=== PATIENT | female | born 1940 | race Caucasian/White ===

== ENCOUNTER 2018-12-10 19:19 | Inpatient (IN) ==
[2018-12-10 21:22] LABS: BASO# 0.01 X1000 (0.0-0.2); BASO% 0.1 % (0.0-0.8); EOS# 0.01 X1000 (0.0-0.7); EOS% 0.1 % (0.0-10.0); HEMATOCRIT 45.2 % (37.0-47.0); HEMOGLOBIN 15.3 g/dL (12.0-16.0); IMM GRAN# 0.07 X1000 (0.0-0.04); IMM GRAN% 0.4 % (0.0-0.5); LYMPH# 0.35 X1000 (1.2-3.4); LYMPH% 1.8 % (20.5-51.1); MCH 29.9 PG (27-31); MCHC 33.8 g/dL (33-37); MCV 88.3 FL (81-99); MONO# 0.95 X1000 (0.11-0.59); MONO% 4.8 % (1.7-9.3); MPV 10.8 FL (7.4-10.4); NEUT# 18.32 X1000 (1.4-6.5); NEUT% 92.8 % (42.2-75.2); PLT 266 X1000 (130-400); RBC 5.12 XMIL (4.2-5.4); RDW 12.8 % (11.5-14.5); WBC 19.71 X1000 (4.8-10.8)
[2018-12-10 21:27] LABS: ALB/GLOB RATIO 1.2; ALBUMIN 3.8 g/dL (3.5-5.0); CALCIUM 9.7 mg/dL (8.8-10.2); POTASSIUM 4.5 mmol/L (3.5-5.1); TOTAL BILIRUBIN 0.53 mg/dL (0.20-1.00)
[2018-12-10] MEDS ORDERED: NS 1,000 ML IV ONE (21:46)
[2018-12-10] MEDS ORDERED: ZOFRAN IV ONE (21:46)
--- NOTE | 2018-12-10 22:03 | PROVIDER DOCUMENTATION ---
HPI-Abdominal Pain/GI Problem - General Chief Complaint: N/V/D Stated Complaint: nvd Time Seen by Provider: 12/10/18 20:41 Source: patient, family - History of Present Illness-ABD Nature of Presenting Problems: Abd pain, n/v/d overall worsening since 11/27/2018. She became too weak to stand today which prompted EMS to be called. No headache, chest pain. Abdominal Pain Onset Location: reports: generalized abdomen Pain Radiation: reports: no radiation Quality of Pain: reports: cramping Severity in ED: reports: mild Onset/Duration: reports: other Timing: reports: getting worse Activities at Onset: reports: none Modifying Factors: worse with: nothing Associated Symptoms: reports: diarrhea, fatigue, fever/chills, malaise, nausea, vomiting, trouble walking. denies: chest pain, cough, syncope Bruising or Bleeding Gums?: No Similar Symptoms Previously?: No Recently seen or treated by another doctor?: No Review of Systems - Adult - REVIEW OF SYSTEMS - ADULT Constitutional: reports: see HPI, chills Eyes: reports: no symptoms reported Ears, Nose, Mouth & Throat: reports: no symptoms reported Cardiovascular: reports: no symptoms reported. denies: chest pain Respiratory: reports: no symptoms reported. denies: cough Gastrointestinal: reports: see HPI, abdominal pain, nausea, vomiting. denies: rectal bleeding Genitourinary: reports: no symptoms reported Musculoskeletal: reports: no symptoms reported. denies: back pain Integumentary: reports: no symptoms reported. denies: rash Neurological: reports: no symptoms reported. denies: numbness, paresthesia Psychiatric: reports: no symptoms reported Endocrine: reports: no symptoms reported Hematologic/Lymphatic: reports: no symptoms reported Allergic/Immunologic: reports: no symptoms reported All Other Systems: Reviewed and Negative Past History - Adult - PAST MEDICAL HISTORY-ADULT Review of Records: reports: Old Records Reviewed, Nursing Assessment Review, Medications Reviewed, Social history reviewed & non-contributory. Major Childhood Illnesses: reports: denies history Cardiovascular: reports: denies history Respiratory: reports: denies history Gastrointestinal: reports: denies history Obstetrical/Gynecological: reports: denies history Genitourinary: reports: denies history Musculoskeletal: reports: denies history Neurological: reports: denies history Endocrine/Immune: reports: denies history Other Conditions: reports: denies history - IMMUNIZATION STATUS Childhood Immunizations: See Nurse Assessment Flu Vaccine: See Nurse Assessment - FAMILY HISTORY Family History: reviewed, not pertinent - SOCIAL HISTORY Smoking: denies Substance Use: none/never Alcohol Use Frequency: never Living Situation: family Physical Exam-General - PHYSICAL EXAM-ADULT Initial Vital Signs Reviewed: Yes - CONSTITUTIONAL General Appearance: appears well, alert, no apparent distress - EYES Eyes: pink conjunctivae - HEAD, EARS, NOSE, MOUTH & THROAT HENMT: moist mucous membranes - NECK Neck: supple - RESPIRATORY Respiratory: lungs clear, normal breath sounds - CARDIOVASCULAR Cardiovascular: normal peripheral pulses, regular rate, rhythm - GASTROINTESTINAL (ABDOMEN) Abdominal Exam: non tender, soft - LYMPHATIC Lymphatic: no adenopathy - MUSCULOSKELETAL Back Exam: normal inspection Extremity: normal gait - SKIN Integumentary: normal color, normal turgor, warm/dry - NEUROLOGIC Neurologic: grossly normal - PSYCHIATRIC Psych/Mental Status: normal thought content, oriented x 3 Progress - PLAN OF CARE/RESULTS Progress/Plan/Lab Results: Vital Signs - 8 hr 12/10/18 19:19 Temperature 99.0 F Pulse Rate 88 Respiratory Rate 19 Blood Pressure 155/66 O2 Sat by Pulse Oximetry 100 Laboratory Results - last 24 hr 12/10/18 12/10/18 20:19 20:19 WBC 19.71 H RBC 5.12 Hgb 15.3 Hct 45.2 MCV 88.3 MCH 29.9 MCHC 33.8 RDW Std Deviation 12.8 Plt Count 266 MPV 10.8 H Immature Gran % (Auto) 0.4 Neut % (Auto) 92.8 H Lymph % (Auto) 1.8 L [place] % (Auto) 4.8 Eos % (Auto) 0.1 Baso % (Auto) 0.1 Immature Gran # (Auto) 0.07 H Neut # (Auto) 18.32 H Lymph # (Auto) 0.35 L [place] # (Auto) 0.95 H Eos # (Auto) 0.01 Baso # (Auto) 0.01 Sodium 141 Potassium 4.5 Chloride 105 Carbon Dioxide 23 L Anion Gap 13 BUN 18 Creatinine 1.0 H Estimated GFR/1.73 m2 53 BUN/Creatinine Ratio 18 Glucose 148 H Calculated Osmolality 286 Calcium 9.7 Total Bilirubin 0.53 AST 27 ALT 21 Alkaline Phosphatase 99 Total Protein 7.0 Albumin 3.8 Globulin 3.2 Albumin/Globulin Ratio 1.2 Lipase 12 L Orders Category Date Time Status Saline Loc NOW Care 12/10/18 21:02 Active NPO Diet 12/10/18 21:[address] ABD/PELVIS W/IV CONT ONLY [CT] Stat Exams 12/10/18 21:46 Ordered CBC WITH DIFF [HEME] Stat Lab 12/10/18 20:19 Completed COMPREHENSIVE METABOLIC PANEL [CHEM] Stat Lab 12/10/18 20:19 Completed LIPASE [CHEM] Stat Lab 12/10/18 20:19 Completed 0.9% Sodium Chloride Inj [Ns] 1,000 ml Med 12/10/18 21:46 Active IV 999 mls/hr Ondansetron [Zofran] Med 12/10/18 21:46 Discontinued 4 mg IV NOW ONE Abd Pain/OB <20 weeks Stat Oth 12/10/18 21:[address] Brizuela. Result Diagrams: 12/10/18 20:19 12/10/18 20:19 - CT/MRI 1 CT Study: Abdomen, Pelvis Impression: See EMR Report (colitis, distal esophagus thickened.) - CONSULTS/PCP/HOSPITALIST Notification #1 *Consult/PCP/Hospitalist*: Dr. Chiang Time Discussed: 22:49 Consult Disposition: Admit Departure - Departure Date of Disposition Decision: 12/10/18 Time of Disposition Decision: 22:48 DIAGNOSIS: Colitis Abdominal pain Qualifiers: Abdominal location: unspecified location Qualified Code(s): R10.9 - Unspecified abdominal pain Leukocytosis Qualifiers: Leukocytosis type: unspecified Qualified Code(s): D72.829 - Elevated white blood cell count, unspecified Disposition: ADMITTED INPATIENT 09 Certified Medical Emergency: Emergent Condition: Stable - Critical Care Note This patient required my direct & personal management of CC.: No Attestation - Physician/ JOSE ALFREDO Attestation Patient care was provided by Advanced Practice Provider:: Yes Advanced Practice Provider:: Marvin Rg Advanced Practice Provider documentation review:: The Mid-level provider documentation, treatment plan and medical decision making was reviewed by the physician who agrees with all treatment and medical decision making by the MLP. The physician spent face to face time with patient:: No Advanced Practice Provider documentation review:: Supervising physician onsite and consulted in the evaluation and care of this patient. The physician did not have a face to face encounter with the patient.
[2018-12-10] MEDS ORDERED: LEVAQUIN 500 MG/D5W 500 MG/100 ML IVPB IV ONE (22:34)
[2018-12-10] MEDS ORDERED: FLAGYL 500 MG/NS 500 MG/100 ML IVPB IV ONE (22:34)
[2018-12-11] MEDS ORDERED: CHLORASEPTIC SORE THROAT LOZENGE MT PRN (00:44)
[2018-12-11] MEDS ORDERED: PEPCID PO PRN (00:45)
[2018-12-11] MEDS ORDERED: IMODIUM PO PRN (00:47)
[2018-12-11 01:12] LABS: HEMOGLOBIN A1C 5.4 % (4.8-6.0)
--- NOTE | 2018-12-11 03:02 | HISTORY AND PHYSICAL ---
CHIEF COMPLAINT: Nausea, vomiting and diarrhea. HISTORY OF PRESENT ILLNESS: Very pleasant 78-year-old female lying in the ER stretcher has a past medical history of GERD and H. pylori, who had nausea, vomiting and diarrhea that originally started back on November 27. She had nausea and vomiting that day for roughly 24 hours and then it went away. She stated that she has limited what she has eaten since then but she has felt okay. Yesterday, she started having nausea and vomiting again and then the last 12 or 24 hours she started having several bouts of diarrhea. She denied any hematemesis, melena or hematochezia. She stated that she took Phenergan which helped with the nausea but today she has just felt so weak that she was having trouble getting out of the bed and ultimately had to call EMS to help get her out of the bed because her bedroom is on the second story. A CT scan in the ER showed that the patient has colitis. She also has an elevated white blood cell count at 19.71. She will be admitted to the medical floor for further evaluation and treatment. PAST MEDICAL HISTORY: See HPI. PREVIOUS SURGICAL HISTORY: 1. Colonoscopy and EGD. 2. Tonsillectomy. 3. Cholecystectomy. 4. Appendectomy. 5. Hysterectomy. SOCIAL HISTORY: Lives at home with her . No tobacco, alcohol or illicit drug use or abuse. FAMILY HISTORY: Mother has from melanoma. She also had coronary artery disease. Father from coronary artery disease and myocardial infarction. ALLERGIES: No known drug allergies. HOME MEDICATIONS: A list of home medications has not been fully reconciled. However, the patient states that she only takes Prilosec, Pepcid and I believe she said Librium up to 4 times a day. REVIEW OF SYSTEMS: Fourteen point review of systems conducted with the patient She had complaints of fatigue, global weakness, nausea, vomiting and diarrhea and a dry sore throat. All other systems were reviewed and found to be negative. PHYSICAL EXAMINATION: VITAL SIGNS: Temperature 99, pulse 92, respirations 19, blood pressure 155/66 , oxygen saturation 100% on room air. GENERAL: Pleasant 78-year-old female looks younger than stated age. She is alert and oriented times 3, answers all questions appropriately. is at bedside, very supportive. HEENT: Head is atraumatic, normocephalic. Pupils equal, round, reactive to light. Extraocular eye movement intact. Sclerae are anicteric. Conjunctiva is pink. Oral mucosa is dry and tacky. Pharynx has mild erythema. NECK: Supple. No JVD. No thyromegaly. Trachea is midline. No cervical lymphadenopathy. CARDIAC: S1, S2 appreciated. No murmurs, gallops, or rubs. LUNGS: Clear to auscultation bilaterally. No rhonchi, wheezes, rales. Symmetric rise and fall with respirations. ABDOMEN: Soft, nondistended, nontender. Bowel sounds hyperactive all 4 quadrants. No pulsatile mass. No organomegaly. EXTREMITIES: No clubbing, cyanosis, or edema. Two-plus pedal pulses bilaterally. GENITOURINARY: No bladder distention. Patient voids. Otherwise deferred. NEUROLOGICAL: Alert and oriented times 3. Cranial nerves II through XII grossly intact. DIAGNOSTIC DATA: CT of the abdomen showed colitis. LABORATORY DATA: WBC 19.71. Hemoglobin 15.3. Hematocrit 45.2. Platelet count 266. Sodium 141. Potassium 4.5. Chloride 105. Carbon dioxide 23. BUN 18. Creatinine 1. Glucose 148. ASSESSMENT AND PLAN: 1. Colitis. We will give Flagyl and Levaquin IV. We will give patient Imodium p.r.n. for the diarrhea and Zofran as needed for nausea. 2. Leukocytosis secondary to number 1. 3. Gastroesophageal reflux disease. Continue home medications. 4. Hyperglycemia. Patient does not carry the diagnosis of diabetes. We will check hemoglobin A1c. Further recommendations per patient clinical course. Dictated by HOLA Serna for Navid Chiang MD cc: HOLA Serna MD Bhavna Gowda, MD MTDD
[2018-12-11] MEDS ORDERED: ZOFRAN IV PRN (04:02)
[2018-12-11] MEDS ORDERED: TYLENOL PO PRN (04:02)
[2018-12-11] MEDS: NS 1,000 ML IV SCH ×2 (05:59→23:37)
--- NOTE | 2018-12-11 06:05 | PROGRESS NOTE ---
DATE: 12/11/2018 [id number] ENCOUNTER: Ms. Bhavana Perrin is a 78-year-old female, who presented to hospital because of nausea, vomiting, and diarrhea, and she had a CT scan of the abdomen which showed evidence of colitis. Physical exam is not remarkable. She will need to be placed on antibiotics, and we are using a combination of Flagyl and also Levaquin. The patient will also require GI evaluation. cc: Navid Chiang MD
[2018-12-11 06:20] LABS: BASO# 0.01 X1000 (0.0-0.2); BASO% 0.1 % (0.0-0.8); HEMATOCRIT 38.8 % (37.0-47.0); HEMOGLOBIN 12.8 g/dL (12.0-16.0); IMM GRAN# 0.04 X1000 (0.0-0.04); IMM GRAN% 0.2 % (0.0-0.5); LYMPH# 0.81 X1000 (1.2-3.4); MCH 29.5 PG (27-31); MCV 89.4 FL (81-99); MONO% 7.4 % (1.7-9.3); MPV 10.6 FL (7.4-10.4); NEUT# 14.26 X1000 (1.4-6.5); NEUT% 87.3 % (42.2-75.2); PLT 216 X1000 (130-400); RBC 4.34 XMIL (4.2-5.4); RDW 12.8 % (11.5-14.5); WBC 16.32 X1000 (4.8-10.8)
[2018-12-11 06:42] LABS: CREATININE 0.9 mg/dL (0.5-0.9); MAGNESIUM 2.2 mg/dL (1.5-2.7); POTASSIUM 4.4 mmol/L (3.5-5.1)
[2018-12-11] MEDS ORDERED: PRILOSEC PO SCH ×2 (07:00→09:00)
[2018-12-11 07:11] LABS: LYMPHS 6 % (21-51); MONO 2 % (1-9); SEGS 92 % (42-75)
--- NOTE | 2018-12-11 07:29 | Diag Imaging Result Doc PS360 ---
EXAM: CT ABD/PELVIS W/IV CONT ONLY INDICATION: abd pain, n/v, leukocytosis TECHNIQUE: This exam was performed using automated exposure control, adjustment of mA or kV according to patient size, and/or use of iterative reconstruction technique. COMPARISON: 08/19/2017 FINDINGS: There is minimal subsegmental atelectasis at the lung bases. There has been a prior cholecystectomy. There is mild hepatic steatosis. There is mild pancreatic atrophy. The spleen and adrenal glands are unremarkable. The kidneys and urinary bladder are unremarkable. There has been a previous hysterectomy. There is abnormal wall thickening involving the splenic flexure of the colon extending to the sigmoid colon consistent with nonspecific colitis infectious and inflammatory etiologies are considered. There is uncomplicated diverticulosis coli. There is no evidence of bowel obstruction. There is a very small hiatal hernia. There is a small amount of fluid in the esophagus distally suggesting gastroesophageal reflux. The esophageal wall may be slightly thickened which could indicate mild esophagitis. The remainder of the GI tract is essentially unremarkable. IMPRESSION: 1.Nonspecific colitis involving the splenic flexure extending to the sigmoid colon. 2.Very small hiatal hernia with fluid in the distal esophagus suggesting esophageal reflux impression minimal distal esophageal wall thickening. Consider mild esophagitis. 3.Other incidental/nonacute findings detailed above. Electronically signed by Tyson Perez 12/11/2018 7:27 AM
[2018-12-11] MEDS: FLAGYL 500 MG/NS 500 MG/100 ML IVPB IV SCH ×3 (08:01→19:51)
[2018-12-11] MEDS: LIBRAX PO SCH ×3 (08:48→22:53)
--- NOTE | 2018-12-11 10:01 | PROGRESS NOTE ---
DATE: 12/21/2018 SUBJECTIVE: This morning, Ms. Perrin refers to be doing a little better. She feels stronger. She has not had any bowel movement. She felt slightly nauseated early on but, for the most part, she feels better than yesterday. OBJECTIVE: Vital signs: Blood pressure is 106/65, pulse is 80, respirations is 14, temperature is 98.1. The patient was saturating 96% on room air. General: Ms. Perrin is a 78-year-old female. She was in bed not seemingly distressed. Mucosa is slightly dry. Anicteric. Acyanotic. Neck is supple. Chest: Good air entry bilateral. There were no crepitations. No rhonchi. Cardiovascular: Regular rate and rhythm. No murmurs, no rubs, gallops. Abdomen was soft, nontender. Bowel sounds present. Extremities: No pedal edema. Distal pulses are present. TIRE RECAPPER: Patient is awake, alert, oriented. There is no focal neurological deficit. LABORATORY DATA: WBC is 16.32, hemoglobin is 12.8, platelet count of 216,000. Chemistry is also reviewed and completely normal. A CT scan of the abdomen and pelvis shows a nonspecific colitis involving the splenic flexure extending to the sigmoid colon, and there is also mild esophagitis. ASSESSMENT: 1. Left-sided colitis, etiology is unknown, most likely infectious. We will do stool studies and will also get GI to evaluate the patient to rule out any other possibilities. The patient is currently on antibiotics. 2. History of gastroesophageal reflux disease. We will continue with proton pump inhibitor. 3. Mild esophagitis on CT scan noted. 4. Clinical volume depletion. Patient is on IV fluids. cc: Juan Ochoa MD
[2018-12-11] MEDS: SODIUM CHLORIDE 0.9% INJ SCH (12:40)
[2018-12-11] MEDS: PROTONIX IV SCH (12:40)
--- NOTE | 2018-12-11 13:07 | CONSULTATION ---
DATE OF CONSULTATION: 12/11/2018 REFERRING PHYSICIAN: Dr. Juan Ochoa. PRIMARY CARE DOCTOR: Dr. Lynne Mondragon. REASON FOR CONSULTATION: Nausea, vomiting, diarrhea, and CT scan showing evidence of colitis. HISTORY: Ms. Perrin is a 78-year-old female who was admitted on 12/11/2018 through the ER for nausea, vomiting, and diarrhea. According to the patient, her symptoms started on 11/27/2018, and she had relief from nausea and vomiting after 24 hours, but continued to have symptoms of abdominal discomfort, diarrhea, and intermittent nausea. She has had some episodes of vomiting in the recent past well. She has had a colonoscopy done by Dr. Mari about 3 years ago. During this hospitalization, the stool studies have been ordered. They are currently pending. The patient denies any vomiting blood or passing blood in the stools. CT scan was done which showed evidence of esophagitis and colitis in the left colon. Gastroenterology referred for further management. PAST MEDICAL HISTORY: Reflux disease. PAST SURGICAL HISTORY: Colonoscopy, EGD, tonsillectomy, cholecystectomy, appendectomy, hysterectomy. SOCIAL HISTORY: She is . She lives at home with her . present at bedside. No history of tobacco, alcohol or illicit drug abuse. FAMILY HISTORY: Mother from melanoma. She had coronary artery disease. Father passed from coronary disease and myocardial infarction. ALLERGIES: No known drug allergies. HOME MEDICATIONS: 1. Librax 1 tablet 4 times a day. 2. Pepcid 20 mg daily as needed. 3. Prilosec 40 mg daily. MEDICATIONS IN THE HOSPITAL: 1. Tylenol. 2. Benzocaine/menthol. 3. Librax 4 times a day. 4. Flagyl 500 mg IV q.6 hours. 5. Levaquin 250 mg every day. 6. Normal saline 75 ml per hour. 7. Clear liquid diet. 8. Prilosec 40 mg every day. 9. Zofran 4 mg IV every 4 hours. 10. Pepcid 20 mg as directed. REVIEW OF SYSTEMS: She denies any current fevers, rigors, chills, chest pain, shortness of breath, dyspnea. Denies any vomiting blood or passing blood in the stools. She does complain of feeling weak, tired, and dehydrated because of ongoing nausea, vomiting, and diarrhea. She denies any major arthritis and denies any neurologic complaints. She does have a history of baseline reflexes and she takes PPIs at home. PHYSICAL EXAMINATION: Vital Signs: Temperature of 98.9, pulse rate of 82, respiratory rate 14, blood pressure 140/75, saturating 96% on room air. Body weight of 143 pounds. BMI 23.8 kg/m2. General: Moderately nourished, lying in bed in no acute distress. HEENT: No pallor. No icterus. Pupils equal and reactive to light. Neck: Supple. Abdomen: Soft. Discomfort in the left lower quadrant. No rebound. No guarding. Extremities: No cyanosis, clubbing, edema. Neurologic: She is alert, awake, oriented x3. LABORATORY DATA: Hemoglobin and hematocrit is 12.8 and 38.8. White count of 15.3, platelet count of 216,000. MCV of 89.4%. Neutrophils 87.3%. Sodium 142, potassium 4.4, chloride 109, bicarb 23, anion gap 10. BUN of 20, creatinine 0.9 glucose of 120. Calcium is 9. Magnesium 2.2. HB A1c 5.4, AST 27, ALT 21, alkaline phos 99, total protein 7, albumin of 3.8. Lipase of 12. TSH 0.67. 1. CT scan of the abdomen and pelvis done yesterday which showed previous hysterectomy, 2. Abnormal wall thickening involving the splenic flexure of the colon extending to the sigmoid colon consistent with nonspecific colitis. 3. Diverticulosis coli. 4. Small hiatal hernia. 5. A small amount of fluid in the esophagus suggesting gastroesophageal reflux. Esophageal wall may be slightly thickened which could indicate mild esophagitis. IMPRESSION AND PLAN: 1. Abdominal discomfort. 2. Nausea, vomiting, and diarrhea. 3. CT scan showing evidence of colitis in the left colon. 4. Reflux disease and mild esophagitis. 5. Diverticulosis in the colon. 6. Leukocytosis. RECOMMENDATIONS: We will check stool studies. They have been ordered. We will keep the patient on clear liquid diet. We will keep her on Levaquin and Flagyl. We will switch the Prilosec to Protonix once daily. The patient is scheduled for EGD and colonoscopy tomorrow with Dr. Mari. The risks, benefits, indications, and alternatives to the procedure were discussed with the patient and all questions answered. The above plan was discussed with the patient and family and all questions answered. Please call with any further questions. cc: MD Lynne Olivo MD MTDD
[2018-12-11] MEDS ORDERED: GOLYTELY PO ONE (14:00)
[2018-12-11 14:30] LABS: URINE SOURCE CLEAN CATCH
[2018-12-11 14:42] LABS: BILIRUBIN URINE NEGATIVE (NEGATIVE); BLOOD URINE NEGATIVE (NEGATIVE); COLOR YELLOW; GLUCOSE URINE NEGATIVE (NEGATIVE); KETONE URINE NEGATIVE (NEGATIVE); LEUKOCYTES URINE NEGATIVE (NEGATIVE); NITRITE URINE NEGATIVE (NEGATIVE); PH URINE 5.5; PROTEIN URINE NEGATIVE (NEGATIVE); SP GRAVITY URINE 1.011; TURBIDITY URINE CLEAR (CLEAR); UR EPITHELIAL CELLS <10 /HPF (<10); URINE BACTERIA 1+ /HPF; URINE RBC <10 /HPF (<10); URINE WBC <10 /HPF (<10); UROBILINOGEN URINE NORMAL (NORMAL)
[2018-12-12] MEDS: NS 1,000 ML IV SCH ×3 (00:11→20:57)
[2018-12-12] MEDS: LEVAQUIN 250 MG/D5W 250 MG/50 ML IVPB IV SCH (01:00)
[2018-12-12] MEDS: FLAGYL 500 MG/NS 500 MG/100 ML IVPB IV SCH ×4 (01:50→22:15)
[2018-12-12] MEDS: SODIUM CHLORIDE 0.9% INJ SCH (01:51)
[2018-12-12] MEDS: PROTONIX IV SCH ×2 (01:51→14:00)
[2018-12-12 06:27] LABS: BASO# 0.01 X1000 (0.0-0.2); BASO% 0.1 % (0.0-0.8); EOS# 0.09 X1000 (0.0-0.7); EOS% 0.8 % (0.0-10.0); HEMATOCRIT 33.9 % (37.0-47.0); HEMOGLOBIN 10.9 g/dL (12.0-16.0); IMM GRAN# 0.02 X1000 (0.0-0.04); IMM GRAN% 0.2 % (0.0-0.5); LYMPH# 1.83 X1000 (1.2-3.4); LYMPH% 16.3 % (20.5-51.1); MCH 29.1 PG (27-31); MCHC 32.2 g/dL (33-37); MCV 90.6 FL (81-99); MONO# 0.91 X1000 (0.11-0.59); MONO% 8.1 % (1.7-9.3); MPV 10.5 FL (7.4-10.4); NEUT# 8.34 X1000 (1.4-6.5); NEUT% 74.5 % (42.2-75.2); PLT 175 X1000 (130-400); RBC 3.74 XMIL (4.2-5.4)
[2018-12-12 06:48] LABS: AGAP 9; ALBUMIN 2.9 g/dL (3.5-5.0); BUN 12 mg/dL (8-22); CALCIUM 8.4 mg/dL (8.8-10.2); CHLORIDE 109 mmol/L (98-107); COSMO 284; CREATININE 0.8 mg/dL (0.5-0.9); ESTIMATED GFR > 60; GLUCOSE 79 mg/dL (70-104); PHOSPHORUS 1.6 mg/dL (2.7-4.5); POTASSIUM 3.7 mmol/L (3.5-5.1); SODIUM 143 mmol/L (136-145); TCO2 25 mmol/L (25-35)
[2018-12-12] MEDS: LIBRAX PO SCH ×2 (08:41→22:15)
[2018-12-12] MEDS ORDERED: XYLOCAINE-MPF 2% ONE (11:23)
[2018-12-12] MEDS ORDERED: DIPRIVAN 1% ONE (11:23)
[2018-12-12] MEDS: VITAMIN D PO SCH (14:00)
--- NOTE | 2018-12-12 15:38 | OPERATIVE NOTE ---
PROCEDURE DATE: 12/12/2018 PROCEDURE: 1. Colonoscopy and biopsy. 2. Esophagogastroduodenoscopy. PREOPERATIVE DIAGNOSIS: Nausea, vomiting, diarrhea. POSTOPERATIVE DIAGNOSIS: 1. Segmental colitis involving sigmoid colon, mild, ischemic. 2. Normal Esophagogastroduodenoscopy. After informed consent and adequate intravenous sedation, the scope introduced into the esophagus, stomach, and duodenum. The entire upper gastrointestinal tract is normal. There is no gastritis, esophagitis, or enteritis. At this point, digital rectal exam done and scope introduced all the way into the ascending colon. There is some retained stool in the ascending colon. The patient has a short segment, about 10 cm of the sigmoid colon with the colitis only in the antimesenteric border suggestive of ischemic colitis. It is rather mild. Biopsies were obtained. The scope was withdrawn. The patient tolerated the procedure well without any immediate complications. cc: Maynor Mari MD
[2018-12-12] MEDS: PERIDEX MT SCH (22:15)
[2018-12-13] MEDS: LEVAQUIN 250 MG/D5W 250 MG/50 ML IVPB IV SCH (00:50)
[2018-12-13] MEDS: PROTONIX IV SCH (00:50)
[2018-12-13] MEDS: SODIUM CHLORIDE 0.9% INJ SCH (00:50)
[2018-12-13] MEDS: FLAGYL 500 MG/NS 500 MG/100 ML IVPB IV SCH ×2 (03:12→08:35)
[2018-12-13 07:52] VITALS: BP 188/75
[2018-12-13 08:09] LABS: AGAP 10; BUN 8 mg/dL (8-22); CALCIUM 8.8 mg/dL (8.8-10.2); CHLORIDE 110 mmol/L (98-107); COSMO 284; CREATININE 0.8 mg/dL (0.5-0.9); ESTIMATED GFR > 60; GLUCOSE 86 mg/dL (70-104); PHOSPHORUS 2.2 mg/dL (2.7-4.5); POTASSIUM 3.4 mmol/L (3.5-5.1); SODIUM 144 mmol/L (136-145); TCO2 24 mmol/L (25-35)
[2018-12-13] MEDS: LIBRAX PO SCH (08:35)
[2018-12-13] MEDS: VITAMIN D PO SCH (08:35)
[2018-12-13] MEDS: PERIDEX MT SCH (08:36)
[2018-12-13 09:17] LABS: BASO# 0.02 X1000 (0.0-0.2); BASO% 0.3 % (0.0-0.8); EOS# 0.26 X1000 (0.0-0.7); EOS% 4.1 % (0.0-10.0); HEMOGLOBIN 10.7 g/dL (12.0-16.0); LYMPH# 1.43 X1000 (1.2-3.4); LYMPH% 22.4 % (20.5-51.1); MCH 29.6 PG (27-31); MCHC 32.4 g/dL (33-37); MCV 91.2 FL (81-99); MONO# 0.51 X1000 (0.11-0.59); MPV 11.1 FL (7.4-10.4); NEUT# 4.15 X1000 (1.4-6.5); NEUT% 65.2 % (42.2-75.2); PLT 179 X1000 (130-400); RBC 3.62 XMIL (4.2-5.4); RDW 12.9 % (11.5-14.5); WBC 6.37 X1000 (4.8-10.8)
--- NOTE | 2018-12-13 16:28 | DISCHARGE SUMMARY ---
ADMISSION DATE: 12/11/2018 DISCHARGE DATE: 12/13/2018 DISPOSITION: Home. FOLLOWUP: Dr. Mari CONSULTATIONS: GI was consulted. The patient was seen by Dr. Mari followed by Dr. Conklin INVASIVE PROCEDURES DONE DURING THIS ADMISSION: EGD and colonoscopy were done which revealed segmental colitis involving sigmoid colon, mildly ischemic. EGD was normal. ADMISSION DIAGNOSES: 1. Colitis. 2. Leukocytosis. 3. Gastroesophageal reflux disease. DISCHARGE DIAGNOSES: 1. Left-sided colitis, infectious etiologies were all negative. Colonoscopy reveals possibility of ischemic etiology. 2. History of gastroesophageal reflux disease. 3. Mild esophagitis. 4. Clinical volume depletion. 5. Vitamin D deficiency. DISCHARGE MEDICATIONS: 1. Famotidine 20 mg p.r.n. 2. Omeprazole 40 mg daily. 3. Cholecalciferol 2000 units p.o. daily. 4. Levofloxacin 250 p.o. daily. 5. Metronidazole 250 p.o. daily. 6. Fluconazole 100 mg daily for 5 days. PRESENTING COMPLAINT: Nausea, vomiting, and diarrhea. HISTORY OF PRESENTING COMPLAINT: Ms. Perrin is a 78-year-old female who has a history of GERD and H. pylori infections before, came to the emergency department because of nausea and vomiting, abdominal pain and diarrhea. The patient was evaluated. A CT scan did reveal a left side colitis. The patient did have a white cell count of 19.7. She was subsequently admitted for further medical care. HOSPITAL COURSE: Ms. Perrin was adequately hydrated, was started on IV antibiotics, kept n.p.o., and GI was consulted. The patient was seen by Dr. Mari and followed by Dr. Conklin. Decision was made for EGD and colonoscopy which were successfully done. Please refer to the findings in her chart. Postoperatively, Ms. Perrin was okay, did not have any more diarrhea. Abdominal pain resolved. She did respond very satisfactorily to the medical therapy. This morning, she refers to be doing okay, completely asymptomatic. She has been tolerating her diet and her medications. She was also found to have vitamin D deficiency, and this is being replaced. She is in stable condition. She is going to be discharged. She will follow up with Dr. Mari in about a month. Other discharge instructions were discussed with her who was actually just about to enter into the room at the end of the encounter, and I did explain to him as well the discharge planning. Time spent for discharge is 35 minutes. cc: MD Maynor Pereira MD
== END 2018-12-13 11:51 | disposition home or self-care (01) | DRG 395 ==
LOC: ED 19:19 → EDIPHOLD 12-11 00:57 → SUATTDRO 12-11 00:57 → 4N 12-11 11:34
PROVIDERS: ATTEND Internal Medicine
CPT/HCPCS: 36415; 74177; 80048; 80053; 80069; 81001; 82306; 83036; 83690; 83735; 84443; 85025; 87045; 87046; 87177; 87205; 87324; 87449; 88305; 88313; 89055; 94760; 94761; 94799; 96361; 96365; 96367; 96368; 96375; 99285; A9270; C9113; J1956; J2405; J7030; Q9967; S0030; S0164